=== PATIENT | male | born 1975 | race Hispanic/Latino ===

== ENCOUNTER 2021-12-25 13:41 | Outpatient (CLI) | payer OTHER ==
[2021-12-25] MEDS ORDERED: Magnevist 469MG/ML 20 ML VIAL ONE (15:50)
== END 2021-12-25 13:42 | disposition home or self-care (01) ==
LOC: CSHMRI 13:41
PROVIDERS: ATTEND Psychiatry & Neurology Neurology
DX: I63.9 Cerebral infarction, unspecified (principal); I66.23 Occlusion and stenosis of bilateral posterior cerebral arteries
CPT/HCPCS: 70544; 70549; 82565; A9579